=== PATIENT | female | born 1940 | race Caucasian/White ===

== ENCOUNTER 2017-03-16 08:31 | Inpatient (IN) | payer MEDICARE, MEDICAID ==
[~2017-03-16] VITALS: Ht 157.5 cm; Wt 84.0 kg
[~2017-03-16 08:31] MED LIST: ALPR0.5T10 PO; AMLO2.5T2 PO; HYDR25TA6 PO; LANS30CA PO; LEVO100T5 PO; METH4TAB2 PO; METH500T7 PO; OMEP-110 PO; OXYC-302 PO; SENN1TAB7 PO; SIMV5TAB5 PO; TRAM50TA2 PO; VORT10TA PO; WARF2.5T73 PO; WARF5TAB PO; ZOLP5TAB6 PO
[2017-03-16] MEDS ORDERED: SODIUM CHLORIDE FLUSH 10ML SYR IVF ONE (09:00)
[2017-03-16 09:19] LABS: ASPARTATE AMINO TRANSFERASE 26 U/L (15-37); BLOOD UREA NITROGEN 17 mg/dL (7-18); HEMATOCRIT 27.4 % (34.6-47.8); HEMOGLOBIN 9.2 g/dL (11.7-16.4); WHITE BLOOD COUNT 9.2 x10^3/uL (3.4-10)
[2017-03-16] MEDS ORDERED: CEFTRIAXONE PMX 1GM/50ML 50 ML IV ONE (11:30)
[2017-03-16] MEDS ORDERED: CEFTRIAXONE PMX 1GM/50ML 50 ML ONE (11:48)
[2017-03-16 12:53] VITALS: BP 151/70
[2017-03-16] MEDS ORDERED: ONDANSETRON 2MG/ML, 2ML IVPush PRN (13:30)
[2017-03-16] MEDS ORDERED: POLYETHYLENE GLYCOL 17 GM PACKET PO PRN (13:30)
[2017-03-16] MEDS ORDERED: BISACODYL 10 MG SUPP PR PRN (13:30)
[2017-03-16] MEDS ORDERED: ONDANSETRON ODT 4 MG PO PRN (13:30)
[2017-03-16] MEDS ORDERED: TEMPLATE NON-FORMULARY MED. (Alprazolam** 0.5 MG) PO SCH (13:30)
[2017-03-16] MEDS: SODIUM CHLORIDE 0.9% 1,000 ML IV SCH ×2 (13:42→21:31)
[2017-03-16] MEDS: OXYcodone/APAP 5/325MG TABLET PO PRN ×2 (13:42→20:08)
[2017-03-16] MEDS: ENOXAPARIN 80 MG/0.8 ML SQ SCH (15:53)
[2017-03-16] MEDS: POTASSIUM CHLORIDE 20 MEQ TAB.ER.PRT PO SCH (15:54)
[2017-03-16 16:05] VITALS: BP 119/65
[2017-03-16] MEDS ORDERED: WARFARIN 5 MG TABLET PO-COUM ONE (18:00)
[2017-03-16 19:47] VITALS: BP 149/63
[2017-03-16] MEDS ORDERED: ALBUTEROL SULFATE 2.5 MG/3 ML NPPB PRN (20:30)
[2017-03-16] MEDS ORDERED: FLUTICASONE/VILANTEROL 100-25MCG/INH INH SCH (21:00)
[2017-03-16] MEDS: ADVAIR HOMEINH SCH (21:00)
[2017-03-16] MEDS ORDERED: ALBUTEROL HOMEINH PRN (21:00)
[2017-03-16] MEDS ORDERED: OXYcodone/APAP 5/325MG TABLET PO ONE (23:00)
[2017-03-17 01:50] VITALS: BP 116/63
[2017-03-17] MEDS: ENOXAPARIN 80 MG/0.8 ML SQ SCH ×3 (03:00→15:34)
[2017-03-17 05:40] LABS: HEMATOCRIT 24.4 % (34.6-47.8); HEMOGLOBIN 8.2 g/dL (11.7-16.4); WHITE BLOOD COUNT 7.7 x10^3/uL (3.4-10)
[2017-03-17] MEDS: SODIUM CHLORIDE 0.9% 1,000 ML IV SCH (05:47)
[2017-03-17 05:51] LABS: BLOOD UREA NITROGEN 14 mg/dL (7-18)
[2017-03-17] MEDS: OXYcodone/APAP 5/325MG TABLET PO PRN ×4 (06:24→20:37)
[2017-03-17 06:37] VITALS: BP 135/70
[2017-03-17] MEDS: POTASSIUM CHLORIDE 20 MEQ TAB.ER.PRT PO SCH (08:30)
[2017-03-17] MEDS: SENNA/DOCUSATE TABLET PO SCH (08:30)
[2017-03-17] MEDS: LEVOTHYROXINE 100 MCG TABLET PO SCH (08:30)
[2017-03-17] MEDS: OMEPRAZOLE 20 MG CAPSULE.DR PO SCH (08:30)
[2017-03-17] MEDS: AMLODIPINE 5 MG TABLET PO SCH (08:30)
[2017-03-17] MEDS: SIMVASTATIN 5 MG TABLET PO SCH (08:31)
[2017-03-17] MEDS: ADVAIR HOMEINH SCH ×2 (08:34→20:37)
[2017-03-17] MEDS: VORTIOXETINE HYDROBROMIDE PO SCH (08:38)
[2017-03-17] MEDS ORDERED: POTASSIUM PHOSPHATE 22 MEQ in SODIUM CHLORIDE 0.9% 500 ML IV ONE (09:00)
[2017-03-17] MEDS: CEFTRIAXONE PMX 1GM/50ML 50 ML IV SCH (12:20)
[2017-03-17 13:53] VITALS: BP 148/65
[2017-03-17] MEDS ORDERED: WARFARIN 7.5 MG TABLET PO-COUM ONE (18:00)
[2017-03-17 19:07] VITALS: BP 134/64
[2017-03-18] MEDS: OXYcodone/APAP 5/325MG TABLET PO PRN ×5 (00:38→17:56)
[2017-03-18 02:03] VITALS: BP 144/68
[2017-03-18] MEDS: ENOXAPARIN 80 MG/0.8 ML SQ SCH ×2 (03:00→13:32)
[2017-03-18 07:21] VITALS: BP 148/67
[2017-03-18] MEDS: SENNA/DOCUSATE TABLET PO SCH (08:02)
[2017-03-18] MEDS: AMLODIPINE 5 MG TABLET PO SCH (08:02)
[2017-03-18] MEDS: LEVOTHYROXINE 100 MCG TABLET PO SCH (08:03)
[2017-03-18] MEDS: SIMVASTATIN 5 MG TABLET PO SCH (08:03)
[2017-03-18] MEDS: OMEPRAZOLE 20 MG CAPSULE.DR PO SCH (08:03)
[2017-03-18] MEDS: VORTIOXETINE HYDROBROMIDE PO SCH (08:04)
[2017-03-18] MEDS: ADVAIR HOMEINH SCH (08:05)
[2017-03-18 08:16] LABS: HEMOGLOBIN 8.3 g/dL (11.7-16.4); WHITE BLOOD COUNT 7.9 x10^3/uL (3.4-10)
[2017-03-18 08:27] LABS: BLOOD UREA NITROGEN 8 mg/dL (7-18)
[2017-03-18] MEDS: CEFTRIAXONE PMX 1GM/50ML 50 ML IV SCH (13:24)
[2017-03-18 13:40] VITALS: BP 119/52
[2017-03-18] MEDS ORDERED: CIPR250T2 PO (17:51)
[2017-03-18] MEDS ORDERED: WARFARIN 10 MG TABLET PO-COUM SCH (18:00)
== END 2017-03-18 19:28 | disposition home or self-care (01) | DRG 690 ==
LOC: ED 09:33 → 3NE 11:23
PROVIDERS: ADMIT Hospitalist; ATTEND Internal Medicine
PROC: 0T9B70Z Drainage of Bladder with Drainage Device, Via Natural or Artificial Opening (ICD-10-PCS; principal; 2017-03-16)
DX: N39.0 Urinary tract infection, site not specified (principal); J44.9 Chronic obstructive pulmonary disease, unspecified; E44.1 Mild protein-calorie malnutrition; D62 Acute posthemorrhagic anemia; E83.39 Other disorders of phosphorus metabolism; N18.3 Chronic kidney disease, stage 3 (moderate); I12.9 Hypertensive chronic kidney disease with stage 1 through stage 4 chronic kidney disease, or unspecified chronic kidney disease; G47.33 Obstructive sleep apnea (adult) (pediatric); E87.6 Hypokalemia; K58.9 Irritable bowel syndrome, unspecified; K58.1 Irritable bowel syndrome with constipation; E03.9 Hypothyroidism, unspecified; E78.5 Hyperlipidemia, unspecified; F41.9 Anxiety disorder, unspecified; K21.9 Gastro-esophageal reflux disease without esophagitis; M19.90 Unspecified osteoarthritis, unspecified site; Z66 Do not resuscitate; Z96.652 Presence of left artificial knee joint; F32.9 Major depressive disorder, single episode, unspecified; K59.09 Other constipation; Z79.01 Long term (current) use of anticoagulants; Z80.0 Family history of malignant neoplasm of digestive organs; Z90.49 Acquired absence of other specified parts of digestive tract; Z86.711 Personal history of pulmonary embolism; Z86.718 Personal history of other venous thrombosis and embolism; Z90.710 Acquired absence of both cervix and uterus; Z88.2 Allergy status to sulfonamides; Z88.8 Allergy status to other drugs, medicaments and biological substances; Z68.33 Body mass index [BMI] 33.0-33.9, adult
CPT/HCPCS: 36415; 76770; 80048; 80053; 81001; 82550; 83735; 84100; 84443; 85025; 85610; 85730; 87077; 87086; 87186; 96365; J0696; J1650; J2405; J7030; J7040

== ENCOUNTER 2017-07-02 13:53 | Emergency (ER) | payer MEDICARE, MEDICAID ==
[~2017-07-02] VITALS: Ht 157.5 cm; Wt 73.9 kg
[~2017-07-02 13:53] MED LIST changes: +CIPR250T2 PO
[2017-07-02 14:39] LABS: BASOPHILS # (AUTO) 0.04 x10^3/uL (0-0.1); BASOPHILS % (AUTO) 0 % (0-1); EOSINOPHILS # (AUTO) 0.14 x10^3/uL (0-0.4); EOSINOPHILS % (AUTO) 1 % (1-7); LYMPHOCYTES # (AUTO) 1.87 x10^3/uL (1-3.4); LYMPHOCYTES % (AUTO) 18 % (22-44); MD NO; MEAN CORPUSCULAR HEMOGLOBIN 28.3 pg (27.0-34.8); MEAN CORPUSCULAR HGB CONC 33.1 g/dL (32.4-35.8); MEAN CORPUSCULAR VOLUME 85.4 fL (80-100); MEAN PLATELET VOLUME 7.9 fL (7.4-10.4); MONOCYTES # (AUTO) 0.55 x10^3/uL (0.2-0.8); MONOCYTES % (AUTO) 5 % (2-9); NEUTROPHILS # (AUTO) 7.83 x10^3/uL (1.8-6.8); NEUTROPHILS % (AUTO) 75 % (42-75); PLATELET COUNT 265 x10^3/uL (130-400); RED BLOOD COUNT 5.26 x10^6/uL (3.82-5.3); RED CELL DISTRIBUTION WIDTH 16.1 % (9.6-15.2)
[2017-07-02 14:49] LABS: ALBUMIN 4.2 g/dL (3.4-5.0); ANION GAP 6 mmol/L (5-15); CALCIUM 9.9 mg/dL (8.5-10.1); CHLORIDE 103 mmol/L (98-107); CREATININE 0.95 mg/dL (0.55-1.02); INTERNATIONAL NORMALIZED RATIO 2.85 (0.93-1.1); PROTHROMBIN TIME 28.8 Seconds (9.6-11.5)
[2017-07-02 14:53] LABS: TROPONIN I < 0.015 ng/mL (0.000-0.045)
[2017-07-02 15:43] LABS: MICROSCOPIC AUTO
[2017-07-02 17:52] VITALS: BP 133/67
[2017-07-03] MEDS ORDERED: PROM12.553 PO (09:52)
[2017-07-03] MEDS ORDERED: AMLO5TAB2 PO (09:52)
[2017-07-03] MEDS ORDERED: WARF5TAB PO (09:52)
[2017-07-03] MEDS ORDERED: ALPR0.5T6 PO (09:52)
[2017-07-03] MEDS ORDERED: FLUT1DIS3 INH (09:52)
[2017-07-03] MEDS ORDERED: SIMV20TA3 PO (09:52)
[2017-07-03] MEDS ORDERED: TRINTELLIX PO (09:52)
== END 2017-07-02 19:03 | disposition home or self-care (01) ==
LOC: ED 18:47
DX: R07.89 Other chest pain (principal); R06.00 Dyspnea, unspecified; I10 Essential (primary) hypertension; E78.5 Hyperlipidemia, unspecified; K21.9 Gastro-esophageal reflux disease without esophagitis; J45.909 Unspecified asthma, uncomplicated; M19.90 Unspecified osteoarthritis, unspecified site; Z86.711 Personal history of pulmonary embolism
CPT/HCPCS: 36415; 71275; 80048; 81001; 82040; 84484; 85025; 85610; 93005; 99285

== ENCOUNTER 2017-07-03 07:17 | Emergency (ER) | payer MEDICARE, MEDICAID ==
[~2017-07-03] VITALS: Ht 157.5 cm; Wt 73.0 kg
[2017-07-03 09:27] LABS: FREE T4 (FREE THYROXINE) 1.25 ng/dL (0.76-1.46); TROPONIN I < 0.015 ng/mL (0.000-0.045)
[2017-07-03] MEDS ORDERED: PROM12.553 PO (09:52)
[2017-07-03] MEDS ORDERED: SIMV20TA3 PO (09:52)
[2017-07-03] MEDS ORDERED: FLUT1DIS3 INH (09:52)
[2017-07-03] MEDS ORDERED: ALPR0.5T6 PO (09:52)
[2017-07-03] MEDS ORDERED: WARF5TAB PO (09:52)
[2017-07-03] MEDS ORDERED: TRINTELLIX PO (09:52)
[2017-07-03] MEDS ORDERED: AMLO5TAB2 PO (09:52)
[2017-07-03 10:50] VITALS: BP 134/65
== END 2017-07-03 10:54 | disposition home or self-care (01) ==
LOC: ED 10:48
DX: R53.1 Weakness (principal); N30.90 Cystitis, unspecified without hematuria; E78.5 Hyperlipidemia, unspecified; I12.9 Hypertensive chronic kidney disease with stage 1 through stage 4 chronic kidney disease, or unspecified chronic kidney disease; N18.1 Chronic kidney disease, stage 1; J45.909 Unspecified asthma, uncomplicated; Z79.01 Long term (current) use of anticoagulants
CPT/HCPCS: 36415; 84439; 84443; 84484; 93005; 99285

== ENCOUNTER → 2017-08-09 | Outpatient (CLI) | payer MEDICARE, MEDICAID ==
[~2017-08-09] MED LIST changes: +ALPR0.5T6 PO; +AMLO5TAB2 PO; +FLUT1DIS3 INH; +PROM12.553 PO; +SIMV20TA3 PO; +TRINTELLIX PO
== END | disposition home or self-care (01) ==
LOC: CFH 10:55
PROVIDERS: ATTEND Internal Medicine
DX: Z13.820 Encounter for screening for osteoporosis (principal); Z12.31 Encounter for screening mammogram for malignant neoplasm of breast; M81.0 Age-related osteoporosis without current pathological fracture; Z78.0 Asymptomatic menopausal state
CPT/HCPCS: 77080; 77067

== ENCOUNTER → 2017-08-29 | Outpatient (CLI) | payer MEDICARE, MEDICAID ==
[~2017-08-29] MED LIST changes: +REGADENOSON 0.4 MG/5 ML SYRINGE ONE
== END | disposition home or self-care (01) ==
LOC: CFH 07:11
PROVIDERS: ATTEND Internal Medicine Cardiovascular Disease
DX: I08.2 Rheumatic disorders of both aortic and tricuspid valves (principal); E78.5 Hyperlipidemia, unspecified
CPT/HCPCS: 78452; 93017; 93306; A9502; J2785

== ENCOUNTER 2017-11-02 13:54 | Emergency (ER) | payer MEDICARE, MEDICAID ==
[~2017-11-02] VITALS: Ht 157.5 cm; Wt 75.0 kg
[~2017-11-02 13:54] MED LIST changes: -REGADENOSON 0.4 MG/5 ML SYRINGE ONE
[2017-11-02] MEDS ORDERED: SODIUM CHLORIDE FLUSH 10ML SYR IVF ONE (14:30)
[2017-11-02 14:47] LABS: MICROSCOPIC NOT IND
[2017-11-02 14:51] LABS: CULTURE INDICATED? NO
[2017-11-02 15:01] LABS: MEAN CORPUSCULAR HGB CONC 33.7 g/dL (32.4-35.8); MEAN CORPUSCULAR VOLUME 88.9 fL (80-100); MEAN PLATELET VOLUME 8.3 fL (7.4-10.4); PLATELET COUNT 261 x10^3/uL (130-400); RED BLOOD COUNT 4.84 x10^6/uL (3.82-5.3); RED CELL DISTRIBUTION WIDTH 15.2 % (9.6-15.2)
[2017-11-02 15:10] LABS: ALBUMIN 4.1 g/dL (3.4-5.0); ANION GAP 13 mmol/L (5-15); CALCIUM 9.6 mg/dL (8.5-10.1); CHLORIDE 106 mmol/L (98-107)
[2017-11-02 15:13] LABS: INTERNATIONAL NORMALIZED RATIO 2.19 (0.93-1.1); PROTHROMBIN TIME 22.4 Seconds (9.6-11.5)
[2017-11-02 15:18] LABS: ALANINE AMINOTRANSFERASE 40 U/L (12-78); ALKALINE PHOSPHATASE 57 U/L (45-117); BILIRUBIN,TOTAL 0.3 mg/dL (0.2-1.0); CREATININE 1.21 mg/dL (0.55-1.02); TOTAL PROTEIN 8.3 g/dL (6.4-8.2); TROPONIN I < 0.015 ng/mL (0.000-0.045)
[2017-11-02 15:40] LABS: MD YES
[2017-11-02 15:43] LABS: LYMPH#(MANUAL) 2.67 x10^3/uL (1-3.4); LYMPHS% (MANUAL) 14 % (22-44); MONOS#(MANUAL) 1.91 x10^3/uL (0.3-2.7); MONOS% (MANUAL) 10 % (2-9); SEG#(MANUAL) 14.52 x10^3/uL (1.8-6.8); SEGS% (MANUAL) 76 % (42-75)
[2017-11-02 15:44] LABS: <PLATELET ESTIMATE> ADEQUATE; <PLT MORPHOLOGY> NORMAL PLT MORPH; <RBC MORPHOLOGY> NORMAL
[2017-11-02] MEDS ORDERED: OMNIPAQUE 350 MG/ML, 100ML BOTTLE ONE (15:45)
[2017-11-02] MEDS ORDERED: LORazepam 2 MG/ML, 1ML ONE (15:55)
[2017-11-02] MEDS ORDERED: LORazepam 2 MG/ML, 1ML IVPush ONE (16:00)
[2017-11-02 16:02] VITALS: BP 151/76
[2017-11-02 16:17] LABS: SALICYLATE LEVEL < 1.7 mg/dL (2.8-20.0)
[2017-11-02 16:22] LABS: THYROID STIMULATING HORMONE 0.108 mIU/L (0.358-3.740)
== END 2017-11-02 16:52 | disposition home or self-care (01) ==
LOC: ED 16:46
DX: R06.00 Dyspnea, unspecified (principal); I10 Essential (primary) hypertension; K21.9 Gastro-esophageal reflux disease without esophagitis; E78.5 Hyperlipidemia, unspecified; M19.90 Unspecified osteoarthritis, unspecified site; Z86.718 Personal history of other venous thrombosis and embolism; Z86.711 Personal history of pulmonary embolism
CPT/HCPCS: 36415; 36600; 71045; 71275; 80053; 80329; 81003; 82803; 83735; 83880; 84443; 84484; 85025; 85610; 93005; 96374; 99285; J2060; Q9967; G0480

== ENCOUNTER 2018-11-10 10:15 | Inpatient (IN) | payer MEDICARE, MEDICAID ==
[~2018-11-10] VITALS: Ht 157.5 cm; Wt 79.8 kg
[~2018-11-10 10:15] MED LIST changes: +ALBU8.5H8 INH; +AMLO-150 PO; -AMLO5TAB2 PO; +FLUT1AER INH; +PANT40TA5 PO; +ROSU20TA2 PO; +SENN-177 PO; -SENN1TAB7 PO; +SIMV5TAB14 PO; -SIMV5TAB5 PO; +WARF2.5T32 PO; -WARF2.5T73 PO
[2018-11-10] MEDS ORDERED: ONDANSETRON 2MG/ML, 2ML ONE ×2 (10:33→10:44)
[2018-11-10] MEDS ORDERED: HYDROmorphone 2 MG/ML, 1ML ONE ×2 (10:34→11:20)
[2018-11-10] MEDS: HYDROmorphone 2 MG/ML, 1ML IVPush PRN ×2 (10:39→11:23)
[2018-11-10 10:50] LABS: BASOPHILS # (AUTO) 0.02 x10^3/uL (0-0.1); BASOPHILS % (AUTO) 0 % (0-1); EOSINOPHILS # (AUTO) 0.05 x10^3/uL (0-0.4); EOSINOPHILS % (AUTO) 1 % (1-7); LYMPHOCYTES # (AUTO) 1.01 x10^3/uL (1-3.4); LYMPHOCYTES % (AUTO) 11 % (22-44); MD NO; MEAN CORPUSCULAR HEMOGLOBIN 30.1 pg (27.0-34.8); MEAN CORPUSCULAR HGB CONC 34.2 g/dL (32.4-35.8); MEAN CORPUSCULAR VOLUME 88.2 fL (80-100); MEAN PLATELET VOLUME 7.8 fL (7.4-10.4); MONOCYTES # (AUTO) 0.47 x10^3/uL (0.2-0.8); MONOCYTES % (AUTO) 5 % (2-9); NEUTROPHILS # (AUTO) 7.42 x10^3/uL (1.8-6.8); NEUTROPHILS % (AUTO) 83 % (42-75); PLATELET COUNT 225 x10^3/uL (130-400); RED BLOOD COUNT 4.49 x10^6/uL (3.82-5.3); RED CELL DISTRIBUTION WIDTH 15.6 % (9.6-15.2)
--- NOTE | 2018-11-10 10:51 | NUR ---
ULTRASOUND COMPLETED AND MEDICATED FOR CONTINUED PAIN AND NAUSEA
[2018-11-10 10:57] LABS: INTERNATIONAL NORMALIZED RATIO 3.38 (0.93-1.1); PROTHROMBIN TIME 33.9 Seconds (9.6-11.5)
[2018-11-10 10:58] LABS: ALANINE AMINOTRANSFERASE 47 U/L (12-78); ALBUMIN 4.2 g/dL (3.4-5.0); ANION GAP 6 mmol/L (5-15); CALCIUM 9.8 mg/dL (8.5-10.1); CHLORIDE 106 mmol/L (98-107)
[2018-11-10 11:00] LABS: ALKALINE PHOSPHATASE 63 U/L (45-117); BILIRUBIN,TOTAL 0.5 mg/dL (0.2-1.0); CREATININE 1.12 mg/dL (0.55-1.02); TOTAL PROTEIN 8.2 g/dL (6.4-8.2)
[2018-11-10] MEDS ORDERED: ONDANSETRON 2MG/ML, 2ML IVPush ONE (11:00)
--- NOTE | 2018-11-10 11:27 | NUR ---
AMBULATED ONE-PERSON ASSIST TO BATHROOM AND THEN MEDICATED FOR CONTINUED PAIN
--- NOTE | 2018-11-10 11:28 | NUR ---
AT BEDSIDE RE-EVALUATING PT
[2018-11-10] MEDS ORDERED: SODIUM CHLORIDE FLUSH 10ML SYR IVF ONE (11:30)
[2018-11-10 11:38] LABS: MICROSCOPIC AUTO
[2018-11-10 11:43] LABS: CULTURE INDICATED? YES
--- NOTE | 2018-11-10 12:17 | NUR ---
REPORT TO [facility]. PT TO BE TRANSPORTED
--- NOTE | 2018-11-10 12:33 | NUR ---
HOSPITALIST AT BEDSIDE EXAMINING PT
[2018-11-10] MEDS ORDERED: hydrALAzine 20 MG/ML, 1ML IVPush PRN (13:00)
[2018-11-10] MEDS ORDERED: LABETALOL 5MG/ML, 20ML IVPush PRN (13:00)
[2018-11-10] MEDS ORDERED: PROMETHAZINE 25 MG/ML, 1ML IM PRN (13:00)
[2018-11-10] MEDS ORDERED: ONDANSETRON 2MG/ML, 2ML IVPush PRN (13:00)
[2018-11-10] MEDS ORDERED: POTASSIUM CHLORIDE 40 MEQ in SODIUM CHLORIDE 0.9% 500 ML IV ONE (13:00)
[2018-11-10] MEDS ORDERED: LACTATED RINGERS 1,000 ML IV ONE (13:00)
[2018-11-10] MEDS ORDERED: ACETAMINOPHEN 325 MG TABLET PO PRN (13:00)
[2018-11-10] MEDS ORDERED: OMNIPAQUE 350 MG/ML, 100ML BOTTLE ONE (13:05)
[2018-11-10 13:34] VITALS: BP 157/75
[2018-11-10] MEDS: OXYcodone IR 5MG TABLET PO PRN ×4 (13:54→22:00)
[2018-11-10 14:00] VITALS: BP 157/75
[2018-11-10] MEDS: ALBUTEROL SULFATE 2.5 MG/3 ML NPPB SCH ×2 (14:30→20:30)
[2018-11-10] MEDS: morphine SULFATE 10 MG/ML, 1ML IVPush PRN ×2 (15:06→20:24)
[2018-11-10 18:45] VITALS: BP 142/71
[2018-11-10] MEDS: ATORVASTATIN 40 MG TABLET PO SCH (20:24)
[2018-11-10] MEDS ORDERED: LEVOTHYROXINE 100 MCG TABLET PO SCH (21:00)
[2018-11-10] MEDS: BUDESONIDE 0.5 MG/2 ML INHA NPPB SCH (21:00)
[2018-11-10] MEDS: LEVOTHYROXINE 100 MCG TABLET PO SCH (21:30)
[2018-11-10] MEDS: D5%-0.45NACL+KCL 20MEQ 1,000 ML IV SCH (21:31)
[2018-11-11 00:30] VITALS: BP 142/71
[2018-11-11] MEDS: morphine SULFATE 10 MG/ML, 1ML IVPush PRN ×4 (00:49→18:21)
[2018-11-11] MEDS: ALBUTEROL SULFATE 2.5 MG/3 ML NPPB SCH ×4 (02:30→20:30)
[2018-11-11 05:33] LABS: BASOPHILS # (AUTO) 0.02 x10^3/uL (0-0.1); BASOPHILS % (AUTO) 0 % (0-1); EOSINOPHILS # (AUTO) 0.15 x10^3/uL (0-0.4); EOSINOPHILS % (AUTO) 2 % (1-7); LYMPHOCYTES # (AUTO) 1.32 x10^3/uL (1-3.4); LYMPHOCYTES % (AUTO) 15 % (22-44); MD NO; MEAN CORPUSCULAR HEMOGLOBIN 30.2 pg (27.0-34.8); MEAN CORPUSCULAR VOLUME 88.9 fL (80-100); MEAN PLATELET VOLUME 7.6 fL (7.4-10.4); MONOCYTES # (AUTO) 0.52 x10^3/uL (0.2-0.8); MONOCYTES % (AUTO) 6 % (2-9); NEUTROPHILS # (AUTO) 6.62 x10^3/uL (1.8-6.8); NEUTROPHILS % (AUTO) 77 % (42-75); PLATELET COUNT 191 x10^3/uL (130-400); RED BLOOD COUNT 3.85 x10^6/uL (3.82-5.3); RED CELL DISTRIBUTION WIDTH 15.5 % (9.6-15.2)
[2018-11-11 05:38] LABS: INTERNATIONAL NORMALIZED RATIO 2.82 (0.93-1.1); PROTHROMBIN TIME 28.5 Seconds (9.6-11.5)
[2018-11-11 05:42] LABS: CHLORIDE 108 mmol/L (98-107)
[2018-11-11] MEDS: D5%-0.45NACL+KCL 20MEQ 1,000 ML IV SCH (05:44)
[2018-11-11] MEDS: OXYcodone IR 5MG TABLET PO PRN ×4 (05:44→21:29)
[2018-11-11 05:48] LABS: ALANINE AMINOTRANSFERASE 35 U/L (12-78); ALBUMIN 3.4 g/dL (3.4-5.0); ALKALINE PHOSPHATASE 49 U/L (45-117); ANION GAP 5 mmol/L (5-15); BILIRUBIN,TOTAL 0.6 mg/dL (0.2-1.0); CALCIUM 8.5 mg/dL (8.5-10.1); CREATININE 0.98 mg/dL (0.55-1.02); TOTAL PROTEIN 6.5 g/dL (6.4-8.2)
[2018-11-11] MEDS ORDERED: POTASSIUM CHLORIDE 40 MEQ in SODIUM CHLORIDE 0.9% 500 ML IV ONE (07:30)
[2018-11-11 07:39] VITALS: BP 125/56
[2018-11-11] MEDS: HYDROCHLOROTHIAZIDE 25 MG TABLET PO SCH (08:36)
[2018-11-11] MEDS: PANTOPROZOLE 40MG TABLET PO SCH (08:37)
[2018-11-11] MEDS: AMLODIPINE 5 MG TABLET PO SCH (08:37)
[2018-11-11] MEDS ORDERED: ALBUTEROL SULFATE 2.5 MG/3 ML NPPB SCH (09:00)
[2018-11-11] MEDS ORDERED: TEMPLATE NON-FORMULARY MED. (Fluticasone/Salmeterol** (Advair 250-50 Diskus**) 1 PUFF) INH SCH (09:00)
[2018-11-11] MEDS: BUDESONIDE 0.5 MG/2 ML INHA NPPB SCH ×2 (09:20→20:55)
[2018-11-11] MEDS ORDERED: HEPARIN 25,000 UNITS/500ML PMX 500 ML IV PRN (13:30)
[2018-11-11] MEDS ORDERED: HEPARIN 5,000 UNITS/ML, 1ML IV PRN (13:30)
[2018-11-11] MEDS ORDERED: HEPARIN 5,000 UNITS/ML, 1ML IV ONE (13:30)
[2018-11-11 14:21] VITALS: BP 123/48
[2018-11-11] MEDS: POTASSIUM CHLORIDE 20 MEQ TAB.ER.PRT PO SCH (16:14)
[2018-11-11 19:09] VITALS: BP 135/65
[2018-11-11] MEDS: ATORVASTATIN 40 MG TABLET PO SCH (21:28)
[2018-11-11] MEDS: LEVOTHYROXINE 100 MCG TABLET PO SCH (21:29)
[2018-11-12 02:18] VITALS: BP 109/42
[2018-11-12] MEDS: ALBUTEROL SULFATE 2.5 MG/3 ML NPPB SCH ×4 (02:30→20:05)
[2018-11-12] MEDS: OXYcodone IR 5MG TABLET PO PRN ×5 (04:46→21:05)
[2018-11-12 04:57] LABS: BASOPHILS # (AUTO) 0.03 x10^3/uL (0-0.1); BASOPHILS % (AUTO) 1 % (0-1); EOSINOPHILS # (AUTO) 0.14 x10^3/uL (0-0.4); EOSINOPHILS % (AUTO) 2 % (1-7); LYMPHOCYTES # (AUTO) 1.39 x10^3/uL (1-3.4); LYMPHOCYTES % (AUTO) 21 % (22-44); MD NO; MEAN CORPUSCULAR HEMOGLOBIN 30.1 pg (27.0-34.8); MEAN CORPUSCULAR HGB CONC 33.9 g/dL (32.4-35.8); MEAN CORPUSCULAR VOLUME 88.9 fL (80-100); MEAN PLATELET VOLUME 8.1 fL (7.4-10.4); MONOCYTES # (AUTO) 0.78 x10^3/uL (0.2-0.8); MONOCYTES % (AUTO) 12 % (2-9); NEUTROPHILS # (AUTO) 4.22 x10^3/uL (1.8-6.8); NEUTROPHILS % (AUTO) 64 % (42-75); PLATELET COUNT 175 x10^3/uL (130-400); RED BLOOD COUNT 3.72 x10^6/uL (3.82-5.3); RED CELL DISTRIBUTION WIDTH 15.7 % (9.6-15.2)
[2018-11-12 04:58] LABS: INTERNATIONAL NORMALIZED RATIO 2.13 (0.93-1.1); PROTHROMBIN TIME 21.7 Seconds (9.6-11.5)
[2018-11-12 05:15] LABS: ALBUMIN 3.2 g/dL (3.4-5.0); ANION GAP 4 mmol/L (5-15); CALCIUM 8.3 mg/dL (8.5-10.1); CHLORIDE 108 mmol/L (98-107)
[2018-11-12 05:19] LABS: ALANINE AMINOTRANSFERASE 29 U/L (12-78); ALKALINE PHOSPHATASE 50 U/L (45-117); BILIRUBIN,TOTAL 0.6 mg/dL (0.2-1.0); CREATININE 1.11 mg/dL (0.55-1.02); TOTAL PROTEIN 6.3 g/dL (6.4-8.2)
[2018-11-12 06:40] VITALS: BP 115/68
[2018-11-12] MEDS: POTASSIUM CHLORIDE 20 MEQ TAB.ER.PRT PO SCH ×2 (08:17→16:52)
[2018-11-12] MEDS: HYDROCHLOROTHIAZIDE 25 MG TABLET PO SCH (08:17)
[2018-11-12] MEDS: PANTOPROZOLE 40MG TABLET PO SCH (08:18)
[2018-11-12] MEDS: AMLODIPINE 5 MG TABLET PO SCH (08:18)
[2018-11-12] MEDS: BUDESONIDE 0.5 MG/2 ML INHA NPPB SCH ×2 (08:40→20:05)
[2018-11-12] MEDS: morphine SULFATE 10 MG/ML, 1ML IVPush PRN ×2 (10:40→15:49)
[2018-11-12 12:10] VITALS: BP 118/58
[2018-11-12] MEDS: D5%-0.45NACL+KCL 20MEQ 1,000 ML IV SCH (12:13)
[2018-11-12 16:02] LABS: CLOSTRIDIUM DIFFICILE ANTIGEN NEGATIVE; CLOSTRIDIUM DIFFICILE TOXIN NEGATIVE (Negative)
[2018-11-12] MEDS: LEVOTHYROXINE 100 MCG TABLET PO SCH (20:27)
[2018-11-12] MEDS: ATORVASTATIN 40 MG TABLET PO SCH (20:27)
[2018-11-12 20:40] VITALS: BP 124/54
[2018-11-13] MEDS: ALBUTEROL SULFATE 2.5 MG/3 ML NPPB SCH ×4 (02:30→20:30)
[2018-11-13 02:41] VITALS: BP 125/52
[2018-11-13] MEDS: morphine SULFATE 10 MG/ML, 1ML IVPush PRN ×2 (03:00→06:10)
[2018-11-13 04:08] LABS: BASOPHILS # (AUTO) 0.04 x10^3/uL (0-0.1); BASOPHILS % (AUTO) 1 % (0-1); EOSINOPHILS # (AUTO) 0.14 x10^3/uL (0-0.4); EOSINOPHILS % (AUTO) 2 % (1-7); LYMPHOCYTES # (AUTO) 1.14 x10^3/uL (1-3.4); LYMPHOCYTES % (AUTO) 15 % (22-44); MD NO; MEAN CORPUSCULAR HGB CONC 33.6 g/dL (32.4-35.8); MEAN CORPUSCULAR VOLUME 89.2 fL (80-100); MONOCYTES # (AUTO) 0.63 x10^3/uL (0.2-0.8); MONOCYTES % (AUTO) 8 % (2-9); NEUTROPHILS # (AUTO) 5.79 x10^3/uL (1.8-6.8); NEUTROPHILS % (AUTO) 75 % (42-75); PLATELET COUNT 164 x10^3/uL (130-400); RED BLOOD COUNT 3.54 x10^6/uL (3.82-5.3); RED CELL DISTRIBUTION WIDTH 16.3 % (9.6-15.2)
[2018-11-13 04:12] LABS: INTERNATIONAL NORMALIZED RATIO 1.49 (0.93-1.1); PROTHROMBIN TIME 15.4 Seconds (9.6-11.5)
[2018-11-13 04:20] LABS: CALCIUM 8.6 mg/dL (8.5-10.1); CHLORIDE 108 mmol/L (98-107)
[2018-11-13 04:27] LABS: ALANINE AMINOTRANSFERASE 25 U/L (12-78); ALBUMIN 3.2 g/dL (3.4-5.0); ALKALINE PHOSPHATASE 45 U/L (45-117); BILIRUBIN,TOTAL 0.6 mg/dL (0.2-1.0); CREATININE 1.12 mg/dL (0.55-1.02); TOTAL PROTEIN 6.5 g/dL (6.4-8.2)
[2018-11-13 04:29] LABS: ANION GAP 6 mmol/L (5-15)
[2018-11-13] MEDS: D5%-0.45NACL+KCL 20MEQ 1,000 ML IV SCH (06:10)
[2018-11-13 06:35] VITALS: BP 118/54
[2018-11-13] MEDS: BUDESONIDE 0.5 MG/2 ML INHA NPPB SCH ×2 (07:53→20:38)
[2018-11-13] MEDS ORDERED: HEPARIN 5,000 UNITS/ML, 1ML IV PRN (08:00)
[2018-11-13] MEDS: POTASSIUM CHLORIDE 20 MEQ TAB.ER.PRT PO SCH (08:51)
[2018-11-13] MEDS: HYDROCHLOROTHIAZIDE 25 MG TABLET PO SCH (08:52)
[2018-11-13] MEDS: PANTOPROZOLE 40MG TABLET PO SCH (08:52)
[2018-11-13] MEDS: AMLODIPINE 5 MG TABLET PO SCH (08:52)
[2018-11-13] MEDS ORDERED: HEPARIN 5,000 UNITS/ML, 1ML IV ONE (09:00)
[2018-11-13] MEDS: HEPARIN 25,000 UNITS/500ML PMX 500 ML IV PRN ×2 (10:15→17:45)
[2018-11-13] MEDS ORDERED: PROPOFOL 10 MG/ML, 50ML ONE (11:19)
[2018-11-13] MEDS ORDERED: ONDANSETRON ODT 8 MG PO PRN (11:30)
[2018-11-13] MEDS ORDERED: DIAZEPAM 5 MG/ML, 2ML IVPush PRN (11:30)
[2018-11-13] MEDS ORDERED: MIDAZOLAM 1 MG/ML, 2ML IV PRN (11:30)
[2018-11-13] MEDS ORDERED: ONDANSETRON 2MG/ML, 2ML IV PRN (11:30)
[2018-11-13] MEDS ORDERED: FENTANYL PF 100 MCG/2ML IV PRN (11:30)
[2018-11-13 12:05] VITALS: BP 137/67
[2018-11-13] MEDS: OXYcodone IR 5MG TABLET PO PRN ×2 (12:11→22:02)
[2018-11-13] MEDS ORDERED: D5%-0.45NACL+KCL 20MEQ 1,000 ML IV SCH (12:42)
[2018-11-13] MEDS: LOPERAMIDE 2 MG CAPSULE PO PRN ×2 (15:38→21:13)
[2018-11-13 18:55] VITALS: BP 117/53
[2018-11-13] MEDS: LEVOTHYROXINE 100 MCG TABLET PO SCH (21:13)
[2018-11-13] MEDS: ATORVASTATIN 40 MG TABLET PO SCH (21:13)
[2018-11-14 01:34] VITALS: BP 118/55
[2018-11-14] MEDS: ALBUTEROL SULFATE 2.5 MG/3 ML NPPB SCH ×2 (02:30→09:56)
[2018-11-14] MEDS: OXYcodone IR 5MG TABLET PO PRN ×2 (04:17→09:01)
[2018-11-14 06:53] LABS: ALANINE AMINOTRANSFERASE 25 U/L (12-78); ALBUMIN 3.2 g/dL (3.4-5.0); ANION GAP 4 mmol/L (5-15); CALCIUM 8.3 mg/dL (8.5-10.1); CHLORIDE 109 mmol/L (98-107)
[2018-11-14 06:56] LABS: ALKALINE PHOSPHATASE 50 U/L (45-117); BILIRUBIN,TOTAL 0.5 mg/dL (0.2-1.0); TOTAL PROTEIN 6.4 g/dL (6.4-8.2)
[2018-11-14 06:57] LABS: BASOPHILS # (AUTO) 0.03 x10^3/uL (0-0.1); BASOPHILS % (AUTO) 1 % (0-1); EOSINOPHILS # (AUTO) 0.12 x10^3/uL (0-0.4); EOSINOPHILS % (AUTO) 3 % (1-7); LYMPHOCYTES % (AUTO) 20 % (22-44); MD NO; MEAN CORPUSCULAR HEMOGLOBIN 30.5 pg (27.0-34.8); MEAN CORPUSCULAR VOLUME 89.6 fL (80-100); MONOCYTES # (AUTO) 0.43 x10^3/uL (0.2-0.8); MONOCYTES % (AUTO) 9 % (2-9); NEUTROPHILS # (AUTO) 3.37 x10^3/uL (1.8-6.8); NEUTROPHILS % (AUTO) 68 % (42-75); PLATELET COUNT 137 x10^3/uL (130-400); RED CELL DISTRIBUTION WIDTH 16.4 % (9.6-15.2)
[2018-11-14 07:38] VITALS: BP 124/65
[2018-11-14 07:56] LABS: INTERNATIONAL NORMALIZED RATIO 1.22 (0.93-1.1); PROTHROMBIN TIME 12.7 Seconds (9.6-11.5)
[2018-11-14] MEDS: HYDROCHLOROTHIAZIDE 25 MG TABLET PO SCH (09:01)
[2018-11-14] MEDS: AMLODIPINE 5 MG TABLET PO SCH (09:01)
[2018-11-14] MEDS: POTASSIUM CHLORIDE 20 MEQ TAB.ER.PRT PO SCH (09:01)
[2018-11-14] MEDS: PANTOPROZOLE 40MG TABLET PO SCH (09:01)
[2018-11-14] MEDS: BUDESONIDE 0.5 MG/2 ML INHA NPPB SCH (09:56)
[2018-11-14] MEDS ORDERED: WARFARIN 5 MG TABLET PO-COUM ONE (18:00)
== END 2018-11-14 12:40 | disposition left against medical advice (07) | DRG 392 ==
LOC: ED 10:55 → EDIP 11:41 → 4NOR 13:23
PROVIDERS: ADMIT Internal Medicine; ATTEND Internal Medicine
PROC: 0DJ08ZZ Inspection of Upper Intestinal Tract, Via Natural or Artificial Opening Endoscopic (ICD-10-PCS; principal; 2018-11-13 11:15)
DX: R10.11 Right upper quadrant pain (principal); D68.69 Other thrombophilia; K83.8 Other specified diseases of biliary tract; E87.6 Hypokalemia; Z88.2 Allergy status to sulfonamides; Z88.8 Allergy status to other drugs, medicaments and biological substances; Z53.21 Procedure and treatment not carried out due to patient leaving prior to being seen by health care provider; E03.9 Hypothyroidism, unspecified; E78.5 Hyperlipidemia, unspecified; E86.0 Dehydration; G47.33 Obstructive sleep apnea (adult) (pediatric); I12.9 Hypertensive chronic kidney disease with stage 1 through stage 4 chronic kidney disease, or unspecified chronic kidney disease; J45.909 Unspecified asthma, uncomplicated; K21.9 Gastro-esophageal reflux disease without esophagitis; K58.9 Irritable bowel syndrome, unspecified; K76.0 Fatty (change of) liver, not elsewhere classified; N18.3 Chronic kidney disease, stage 3 (moderate); Z79.01 Long term (current) use of anticoagulants; Z80.0 Family history of malignant neoplasm of digestive organs; Z86.711 Personal history of pulmonary embolism; Z86.718 Personal history of other venous thrombosis and embolism; Z90.710 Acquired absence of both cervix and uterus; Z96.652 Presence of left artificial knee joint
CPT/HCPCS: 36415; 74170; 76705; 80053; 81001; 82150; 83605; 83690; 83735; 85025; 85520; 85610; 85730; 87086; 87324; 93005; 94640; 96374; G0378; J1170; J1644; J2405; J2704; J3480; J7613; J7626; Q9967; J2270; J7040; J7120

== ENCOUNTER 2018-11-19 09:27 | Emergency (ER) | payer MEDICARE, MEDICAID ==
[~2018-11-19] VITALS: Ht 157.5 cm; Wt 75.9 kg
--- NOTE | 2018-11-19 09:47 | NUR ---
RIGHT SIDED ABDOMINAL PAIN RADIATING TO SIDE AND BACK AND DIARRHEA FOR THREE WEEKS. LAST TIME SHE HAD BM WAS TWO DAYS AGO.
[2018-11-19] MEDS ORDERED: BUSP15TA PO (10:04)
[2018-11-19] MEDS ORDERED: CALC-31 PO (10:04)
--- NOTE | 2018-11-19 10:41 | NUR ---
PT ambulates with steady gait and balance to provide urine sample. NADN. Pt requesting pain medication and nausea medication.
[2018-11-19 10:48] LABS: BASOPHILS # (AUTO) 0.01 x10^3/uL (0-0.1); BASOPHILS % (AUTO) 0 % (0-1); EOSINOPHILS # (AUTO) 0.03 x10^3/uL (0-0.4); EOSINOPHILS % (AUTO) 0 % (1-7); LYMPHOCYTES # (AUTO) 1.11 x10^3/uL (1-3.4); LYMPHOCYTES % (AUTO) 12 % (22-44); MD NO; MEAN CORPUSCULAR HEMOGLOBIN 28.9 pg (27.0-34.8); MEAN CORPUSCULAR VOLUME 90.5 fL (80-100); MEAN PLATELET VOLUME 7.3 fL (7.4-10.4); MONOCYTES # (AUTO) 0.58 x10^3/uL (0.2-0.8); MONOCYTES % (AUTO) 6 % (2-9); NEUTROPHILS # (AUTO) 7.73 x10^3/uL (1.8-6.8); NEUTROPHILS % (AUTO) 82 % (42-75); PLATELET COUNT 267 x10^3/uL (130-400); RED BLOOD COUNT 4.37 x10^6/uL (3.82-5.3); RED CELL DISTRIBUTION WIDTH 16.3 % (9.6-15.2)
[2018-11-19 10:54] LABS: ALBUMIN 4.2 g/dL (3.4-5.0); ANION GAP 13 mmol/L (5-15); CALCIUM 9.6 mg/dL (8.5-10.1); CHLORIDE 100 mmol/L (98-107)
--- NOTE | 2018-11-19 10:55 | NUR ---
REPORT FROM KALEY JACKSON.
[2018-11-19 10:58] LABS: ALANINE AMINOTRANSFERASE 25 U/L (12-78); ALKALINE PHOSPHATASE 57 U/L (45-117); BILIRUBIN,TOTAL 0.6 mg/dL (0.2-1.0); CREATININE 1.37 mg/dL (0.55-1.02); TOTAL PROTEIN 8.2 g/dL (6.4-8.2)
[2018-11-19] MEDS ORDERED: HYDROcodone/APAP 5/325 TABLET ONE (10:58)
[2018-11-19] MEDS ORDERED: ONDANSETRON ODT 4 MG ONE (10:58)
[2018-11-19] MEDS ORDERED: ONDANSETRON ODT 4 MG PO ONE (11:00)
[2018-11-19] MEDS ORDERED: HYDROcodone/APAP 5/325 TABLET PO ONE (11:00)
--- NOTE | 2018-11-19 11:04 | NUR ---
PT MEDICATED PER AUG. RIGHTS VERIFIED PRIOR. 3 P'S ADDRESSED. URINE SAMPLE COLLECTED AND SENT TO LAB.
[2018-11-19 11:37] LABS: MICROSCOPIC INDICATED
[2018-11-19 11:53] LABS: CULTURE INDICATED? YES
--- NOTE | 2018-11-19 12:21 | NUR ---
PT GIVEN WARM BLANKET. PT REQUESTING MORE PAIN MEDICATIONS. STATES SHE VOMITED WHILE IN CT.
[2018-11-19 12:57] VITALS: BP 150/62
--- NOTE | 2018-11-19 13:00 | NUR ---
EMRD AWARE OF PT WANTING MORE PAIN MEDICATION. NO FURTHER ORDERS AT THIS TIME.
[2018-11-19] MEDS ORDERED: POTASSIUM CHLORIDE 20 MEQ TAB.ER.PRT PO ONE (13:30)
--- NOTE | 2018-11-19 13:42 | NUR ---
SPENT 10 TO 15 MINUTES EDUCATED PT ON D/C. PT VERBALIZED UNDERSTANDING. PT AWARE TO FOLLOW UP WITH PCP NEEDED.
--- NOTE | 2018-11-19 13:48 | NUR ---
PT REFUSED POTASSIUM. EDUCATED PT ON IMPORTANCE. PT AMBULATED WITH STEADY GAIT TO D/C.
== END 2018-11-19 13:51 | disposition home or self-care (01) ==
LOC: ED 10:01
DX: E87.6 Hypokalemia (principal); R10.11 Right upper quadrant pain; I12.9 Hypertensive chronic kidney disease with stage 1 through stage 4 chronic kidney disease, or unspecified chronic kidney disease; N18.1 Chronic kidney disease, stage 1; K21.9 Gastro-esophageal reflux disease without esophagitis; E78.5 Hyperlipidemia, unspecified; Z90.89 Acquired absence of other organs; Z90.49 Acquired absence of other specified parts of digestive tract; Z90.710 Acquired absence of both cervix and uterus; Z86.39 Personal history of other endocrine, nutritional and metabolic disease
CPT/HCPCS: 36415; 74176; 80053; 81001; 83690; 85025; 87086; 99284; Q0162

== ENCOUNTER → 2020-06-02 | Outpatient (CLI) | payer MEDICARE, MEDICAID ==
[~2020-06-02] MED LIST changes: +BUSP15TA PO; +CALC-31 PO; -PANT40TA5 PO; +PANT40TA6 PO; +SIMV20TA19 PO; -SIMV20TA3 PO; -WARF5TAB PO; +WARF5TAB2 PO
== END | disposition home or self-care (01) ==
LOC: CFH 10:04
PROVIDERS: ATTEND Internal Medicine
DX: M85.88 Other specified disorders of bone density and structure, other site (principal); M81.0 Age-related osteoporosis without current pathological fracture
CPT/HCPCS: 77080